=== PATIENT | male | born 1940 | race Caucasian/White ===

== ENCOUNTER 2017-12-13 18:17 | Observation (INO) ==
--- NOTE | 2017-12-13 20:22 | RAD ---
STUDY: CHEST, ONE VIEW History: Chest pain. Comparison: None. Findings: The trachea is midline. There is increased opacity in the upper lobes bilaterally. There appears to b e some elevation of the left hilum. This is most suggestive of scarring or chronic interstitial vela es. There are underlying changes of COPD in both lungs. There is mild cardiomegaly. The mediastinum a nd osseous structures are unremarkable. IMPRESSION: 1. Increased opacity in both lung apices. Imaging characteristics suggest scarring or chronic inters titial changes, but acute infiltrates cannot be completely excluded. Clinical correlation is recommen ded. 2. COPD. 3. Cardiomegaly. Reported By:
[2017-12-13 20:40] LABS: BASOPHILS # (AUTO) 0.2 X10^3/uL (0.0-0.1); EOSINOPHILS # (AUTO) 0.1 x10^3/uL (0.0-0.2); EOSINOPHILS % (AUTO) 1.6 % (0.9-2.9); HEMATOCRIT 38.1 % (42.0-54.0); HEMOGLOBIN 12.6 g/dL (13.5-18.0); LYMPHOCYTES # (AUTO) 2.1 X10^3/uL (1.3-2.9); LYMPHOCYTES % (AUTO) 26.5 % (21.0-51.0); MEAN CORPUSCULAR HEMOGLOBIN 28.5 pg (27.0-34.0); MEAN CORPUSCULAR VOLUME 86.5 fL (80.0-100.0); MEAN PLATELET VOLUME 10.1 fL (7.4-11.0); MONOCYTES # (AUTO) 0.4 x10^3/uL (0.3-0.8); MONOCYTES % (AUTO) 5.4 % (0.0-13.0); NEUTROPHILS # (AUTO) 5.2 x10^3/uL (2.2-4.8); NEUTROPHILS % (AUTO) 64.5 % (42.0-75.0); PLATELET COUNT 274 X10^3/uL (150.0-450.0); RED CELL DISTRIBUTION WIDTH 15.9 % (11.6-16.5); WHITE BLOOD COUNT 8.1 X10^3/uL (3.6-10.0)
[2017-12-13 21:26] LABS: ALANINE AMINOTRANSFERASE 20 Units/L (12-78); ALBUMIN 3.7 g/dL (3.4-5.0); ALKALINE PHOSPHATASE 91 Units/L (46-116); ASPARTATE AMINO TRANSFERASE 17 Units/L (15-37); BLOOD UREA NITROGEN 11 mg/dL (7-18); CALCIUM 9.1 mg/dL (8.5-10.1); CARBON DIOXIDE 32.1 mmol/L (21-32); CHLORIDE 102 mmol/L (98-107); CKMB % 2.8 % (<4); CREATINE KINASE 50 Units/L (39-308); CREATINE KINASE MB 1.4 ng/mL (0-4.0); CREATININE 0.86 mg/dL (0.70-1.30); MAGNESIUM 2.2 mg/dL (1.7-2.9); SODIUM 138 mmol/L (136-145); TOTAL PROTEIN 7.2 g/dL (6.4-8.2); TROPONIN I < 0.02 ng/mL (0-1.5); eGFR NON BLACK RACES > 60 (>60)
--- NOTE | 2017-12-13 22:23 | CT ---
CT brain without contrast Indication: Headache, dizziness. Technique: Noncontrast multiplanar images are reviewed Findings: The scalp soft tissues and bones are negative. Moderate cerebral atrophy changes are presen t. There is no hemorrhage or large vessel infarct. There is mild developing periventricular hypodensi ty changes likely associated chronic small vessel disease. There is carotid atherosclerosis. The ventricles and cisterns bases are clear. There is opacification of left maxillary sinus with asso ciated bony sclerosis and thickening, chronic sinusitis changes are suspected. Impression: 1. Diffuse atrophy. 2. Developing chronic small vessel disease. 3. Left maxillary sinusitis. Reported By:
[2017-12-13 22:41] LABS: BILIRUBIN,URINE NEGATIVE (NEGATIVE); BLOOD/HEMOGLOBIN,URINE 1+ (NEGATIVE); GLUCOSE, URINE NEGATIVE (NEGATIVE); KETONES,URINE NEGATIVE (NEGATIVE); LEUKOCYTE ESTERASE ,URINE NEGATIVE (NEGATIVE); NITRITES,URINE NEGATIVE (NEGATIVE); PH,URINE 6.5 (5.0 - 8.0); PROTEIN,URINE NEGATIVE (NEGATIVE); UROBILINOGEN,URINE NORMAL (NORMAL)
[2017-12-13 22:48] LABS: APPEARANCE,URINE CLEAR (CLEAR); COLOR,URINE YELLOW (YELLOW)
[2017-12-13 22:49] LABS: BACTERIA,URINE NEGATIVE /HPF (NEGATIVE); RBC,URINE NONE SEEN /HPF (NONE SEEN); SQUAMOUS EPITHELIAL CELL,UR RARE /HPF (NEGATIVE)
[2017-12-14] MEDS ORDERED: NITROSTAT SL PRN (00:21)
[2017-12-14 01:18] LABS: CKMB % 2.9 % (<4); CREATINE KINASE MB 1.7 ng/mL (0-4.0); TROPONIN I 0.02 ng/mL (0-1.5)
[2017-12-14] MEDS: NS 1000 ML 1,000 ML IV SCH ×2 (01:41→08:21)
[2017-12-14] MEDS ORDERED: ALBUTEROL SULFATE IN PRN (01:46)
[2017-12-14] MEDS ORDERED: FLONASE NASAL SPRAY ENOSTRIL PRN (01:46)
[2017-12-14] MEDS ORDERED: RESTORIL CAP 30 MG PO PRN (01:46)
[2017-12-14] MEDS ORDERED: VALIUM PO PRN (01:46)
[2017-12-14 01:50] VITALS: BMI 26.4
[2017-12-14] MEDS: MORPHINE SULFATE INJ 2 MG INJ IVP PRN ×2 (03:55→15:09)
--- NOTE | 2017-12-14 04:09 | DR.DIZZY ---
HPI Time seen Time seen: 20:25 PCP Primary Care Physician: Bart HPI Comment HPI Comment: GETTING WORSE. NO FEVER OR NAUSEA. WAS OUT IN THE SUN YESTERDAY. LEGS ARE CRAMPING. BP ELEVATED AND ARMS HURT. PATIENTSAID BACK OF NECK ALSO HURT. Complaint Chief Complaint Doctor Comments: HEADACHE, DIZZINESS THAT STARTED TODAY. Chief Complaint:: "This morning I started getting a bad headache. It then got worse and I started getting dizzy. I went to the urgent care and they did an EKG. He told me that I needed to go to [facility], but they told me to go to the ER first." Nurses Notes Reviewed Nurses Notes Review: Yes Source History Provided: Patient Mode of Arrival Mode of Arrival: Ambulatory Timing Onset of Chief Complaint: 12/13/17 Came on: Suddenly Onset of Symptoms Start Date: 12/13/17 Onset of Symptoms Start Time: 08:00 Duration Duration: Constant Duration: Hours Location of Weakness Weakness Location: Generalized Context Onset: With light exertion Does pt take pot. toxic medication?: No History of: None Stroke Symptoms: Dizziness Severity Severity: Normal activity level Modifying factors Worsens: Other (ON EXERSION) Associated signs and symptoms Associated Signs and Symptoms: Weak and Headache PMH PMH Past Medical History: Yes Past Medical History: COPD Past Medical History Comment: Parkinson, Emphezima, COPD Past Surgical History: No Family History History of Family Medical Conditions: No Social History Does patient currently use any type of tobacco product: No Have you used tobacco products in the last 12 months: No Does any household member use tobacco: No Alcohol Use: None Do you use any recreational Drugs:: No Lives With: Family Lives Where: Home infectious screening In the last 2 months have you had wt loss of >10#?: NO Have you had fever, night sweats or hemotysis?: No Have you traveled outside the country in the last 6 months?: No Isolation: Standard ROS Review of Systems Constitutional: Weakness and Fatigue; negative Chills and Fever Eyes: No Symptoms Reported; negative Eye Pain and Discharge ENTM: Nose Congestion; negative Ear Pain and Throat Pain Respiratoy: No Symptoms Reported, Productive Cough and Short of Breath; negative Wheezing and Hemoptysis Gastrointestinal/Abdominal: No Symptoms Reported; negative Abdominal Pain, Nausea and Vomiting Genitourinary: negative Dysuria, Frequency and Pain Neurological: Weakness and Dizziness Musculoskeletal: Muscle Pain Integumentary: Dryness Hematologic/Lymphatic: No Symptoms Reported Endocrine: No Symptoms Reported All Other Systems: Reviewed and Negative PE Vital Signs Vitals: Temperature 97.5 F Pulse Rate [Left] 72 Pulse Rate 80 Respiratory Rate 20 Blood Pressure [Left Arm] 160/90 Blood Pressure 190/81 O2 Sat by Pulse Oximetry 94 General Limitations: No Limitations General Appearance: Alert Head Head Exam: Normal Inspection, Atraumatic and Normocephalic Eyes Eye exam: PERRL and EOMI; negative Scleral Icterus, Conjunctival Injection, Nystagmus, Periorbital Swelling and Periorbital Tenderness Pupils: Regular, Round: Bilateral and Reactive: Bilateral Sclera/Conjunctival: Normal Inspection: Bilateral ENT ENT Exam: Normal External Ear Exam Neck Neck Exam: Normal Inspection Chest Chest Inspection: Normal Inspection Respiratory Respiratory Exam: Normal Lung Sounds Bilat; negative Chest Wall Tenderness Respiratory Exam: Bilateral: Rhonchi and Lower: Rhonchi Cardiovascular Cardiovascular Exam: Regular Rate, Normal Rhythm and Normal Heart Sounds Abdominal Exam Abdominal Exam: Normal Inspection, Normal Bowel Sounds and Soft; negative Tenderness Abdominal Tenderness: Other (NO TENDERNESS) Rectal Rectal Exam: Deferred Extremeties Extremities Exam: Normal Inspection Back Back Exam: Normal Inspection Neurologic Neurological Exam: Alert, Oriented X3, CN II-XII Intact, Normal Gait and Other ( FINE TREMORES); negative Motor Sensory Deficit Patient Oriented To: Person, Place and Time Psychiatric Psychiatric Exam: Normal Affect and Normal Mood Skin Skin Exam: Dry MDM Differential Diagnosis Differential Diagnosis: Anemia, Dehydration, Hypoglycemia, Myocardial infarction and TIA COURSE Treatment Treatment: SEE ORDERS. IV FLUIDS STARTED IN ED. BP DECREASING. Education/Counseling Education/Counseling: Patient and Education Educated On: Diagnosis and Needs for Follow Up ROR Labs Reviewed Laboratory Results Reviewed?: Yes Result Diagrams: 12/13/17 20:25 12/13/17 21:45 Laboratory: WBC 8.1 X10^3/uL (3.6-10.0) 12/13/17 20:25 RBC 4.40 X10^6/uL (4.7-6.0) L 12/13/17 20:25 Hgb 12.6 g/dL (13.5-18.0) L 12/13/17 20:25 Hct 38.1 % (42.0-54.0) L 12/13/17 20:25 MCV 86.5 fL (80.0-100.0) 12/13/17 20:25 MCH 28.5 pg (27.0-34.0) 12/13/17 20:25 MCHC 33.0 g/dL (33.0-35.0) 12/13/17 20:25 RDW 15.9 % (11.6-16.5) 12/13/17 20:25 Plt Count 274 X10^3/uL (150.0-450.0) 12/13/17 20:25 MPV 10.1 fL (7.4-11.0) 12/13/17 20:25 Neut % (Auto) 64.5 % (42.0-75.0) 12/13/17 20:25 Lymph % (Auto) 26.5 % (21.0-51.0) 12/13/17 20:25 Clare % (Auto) 5.4 % (0.0-13.0) 12/13/17 20:25 Eos % (Auto) 1.6 % (0.9-2.9) 12/13/17 20:25 Baso % (Auto) 2.0 % (0.2-1.0) H 12/13/17 20:25 Neut # (Auto) 5.2 x10^3/uL (2.2-4.8) H 12/13/17 20:25 Lymph # (Auto) 2.1 X10^3/uL (1.3-2.9) 12/13/17 20:25 Clare # (Auto) 0.4 x10^3/uL (0.3-0.8) 12/13/17 20:25 Eos # (Auto) 0.1 x10^3/uL (0.0-0.2) 12/13/17 20:25 Baso # (Auto) 0.2 X10^3/uL (0.0-0.1) H 12/13/17 20:25 Absolute Nucleated RBC 0.0 /100WBC 12/13/17 20:25 INR Target Range - 12/13/17 20: INR 0.85 (0.8-1.3) 12/13/17 20:25 APTT 32.0 SECONDS (22.9-36.5) 12/13/17 20:25 PTT Comment - 12/13/17 20:25 Sodium 138 mmol/L (136-145) 12/13/17 20:27 Corrected Sodium TNP 12/13/17 20:27 Potassium 5.2 mmol/L (3.5-5.1) H 12/13/17 21:45 Chloride 102 mmol/L (98-107) 12/13/17 20:27 Carbon Dioxide 32.1 mmol/L (21-32) H 12/13/17 20:27 BUN 11 mg/dL (7-18) 12/13/17 20:27 Creatinine 0.86 mg/dL (0.70-1.30) 12/13/17 20:27 Est GFR (MDRD) Af Amer > 60 (>60) 12/13/17 20:27 Est GFR (MDRD) Non-Af > 60 (>60) 12/13/17 20:27 Glucose 98 mg/dL (65-99) 12/13/17 20:27 Calcium 9.1 mg/dL (8.5-10.1) 12/13/17 20:27 Corrected Calcium TNP 12/13/17 20:27 Magnesium 2.2 mg/dL (1.7-2.9) 12/13/17 20:27 Total Bilirubin 0.20 mg/dL (0.2-1.0) 12/13/17 20:27 AST 17 Units/L (15-37) 12/13/17 20:27 ALT 20 Units/L (12-78) 12/13/17 20:27 Alkaline Phosphatase 91 Units/L (46-116) 12/13/17 20:27 Creatine Kinase 59 Units/L (39-308) 12/14/17 00:41 CK-MB (CK-2) 1.7 ng/mL (0-4.0) 12/14/17 00:41 CK/CKMB % Calc 2.9 % (<4) 12/14/17 00:41 Troponin I 0.02 ng/mL (0-1.5) 12/14/17 00:41 Total Protein 7.2 g/dL (6.4-8.2) 12/13/17 20:27 Albumin 3.7 g/dL (3.4-5.0) 12/13/17 20:27 Globulin 3.5 g/dL (2.5-4.5) 12/13/17 20:27 Albumin/Globulin Ratio 1.1 Ratio (1.1-2.1) 12/13/17 20:27 Specimen Type Clean catch urine 12/13/17 21:55 Urine Color Yellow (YELLOW) 12/13/17 21:55 Urine Appearance Clear (CLEAR) 12/13/17 21:55 Urine pH 6.5 (5.0 - 8.0) 12/13/17 21:55 Ur Specific [place] 1.005 (1.000-1.030) 12/13/17 21:55 Urine Protein Negative (NEGATIVE) 12/13/17 21:55 Urine Glucose (UA) Negative (NEGATIVE) 12/13/17 21:55 Urine Ketones Negative (NEGATIVE) 12/13/17 21:55 Urine Occult Blood 1+ (NEGATIVE) 12/13/17 21:55 Urine Nitrite Negative (NEGATIVE) 12/13/17 21:55 Urine Bilirubin Negative (NEGATIVE) 12/13/17 21:55 Urine Urobilinogen Normal (NORMAL) 12/13/17 21:55 Ur Leukocyte Esterase Negative (NEGATIVE) 12/13/17 21:55 Urine RBC None seen /HPF (NONE SEEN) 12/13/17 21:55 Urine WBC None seen /HPF (NONE SEEN) 12/13/17 21:55 Ur Squamous Epith Cells Rare /HPF (NEGATIVE) 12/13/17 21:55 Urine Bacteria Negative /HPF (NEGATIVE) 12/13/17 21:55 Ur Culture Indicated? No/not indicated 12/13/17 21:55 ADDITIONAL NOTES Additional Notes Additional Notes: PATIENT ADMITTED TO [facility]. DISCUSS PATIENT WITH DR. JANSEN. HE WILL ADMIT PATIENT.
[2017-12-14] MEDS: MIRAPEX TAB 1 MG PO SCH ×3 (05:10→22:01)
[2017-12-14] MEDS ORDERED: PROVENTIL NEB TX 0.083% 2.5MG/ 3ML NEB PRN (05:13)
[2017-12-14 05:26] LABS: BASOPHILS % (AUTO) 0.6 % (0.2-1.0); EOSINOPHILS # (AUTO) 0.1 x10^3/uL (0.0-0.2); EOSINOPHILS % (AUTO) 1.5 % (0.9-2.9); HEMATOCRIT 38.7 % (42.0-54.0); HEMOGLOBIN 12.6 g/dL (13.5-18.0); LYMPHOCYTES # (AUTO) 1.8 X10^3/uL (1.3-2.9); MEAN CORPUSCULAR HEMOGLOBIN 28.1 pg (27.0-34.0); MEAN CORPUSCULAR HGB CONC 32.5 g/dL (33.0-35.0); MEAN CORPUSCULAR VOLUME 86.3 fL (80.0-100.0); MEAN PLATELET VOLUME 8.5 fL (7.4-11.0); MONOCYTES # (AUTO) 0.4 x10^3/uL (0.3-0.8); MONOCYTES % (AUTO) 5.7 % (0.0-13.0); NEUTROPHILS # (AUTO) 4.4 x10^3/uL (2.2-4.8); NEUTROPHILS % (AUTO) 65.2 % (42.0-75.0); PLATELET COUNT 205 X10^3/uL (150.0-450.0); RED BLOOD COUNT 4.48 X10^6/uL (4.7-6.0); RED CELL DISTRIBUTION WIDTH 15.8 % (11.6-16.5); WHITE BLOOD COUNT 6.7 X10^3/uL (3.6-10.0)
[2017-12-14 05:32] LABS: ALANINE AMINOTRANSFERASE 12 Units/L (12-78); ALBUMIN 3.3 g/dL (3.4-5.0); ALKALINE PHOSPHATASE 86 Units/L (46-116); ASPARTATE AMINO TRANSFERASE 16 Units/L (15-37); BLOOD UREA NITROGEN 10 mg/dL (7-18); CARBON DIOXIDE 31.8 mmol/L (21-32); CHLORIDE 104 mmol/L (98-107); CHOL/HDL RATIO 2.6 (0.0-5.0); CHOLESTEROL 175 mg/dL (0-200); COR CA(FOR HYPOALB) 9.6 mg/dL (8.5-10.1); CREATININE 0.73 mg/dL (0.70-1.30); HDL CHOLESTEROL 67 mg/dL (40-60); SODIUM 139 mmol/L (136-145); TOTAL PROTEIN 7.1 g/dL (6.4-8.2); TRIGLYCERIDES 91 mg/dL (0-150); eGFR NON BLACK RACES > 60 (>60)
[2017-12-14 07:01] LABS: CKMB % 2.4 % (<4); CREATINE KINASE MB 1.3 ng/mL (0-4.0); TROPONIN I 0.03 ng/mL (0-1.5)
--- NOTE | 2017-12-14 08:16 | DR.H&P ---
H&P - History & Physical for Day of: H&P Date: 12/13/17 - Chief Complaint Chief Complaint: HEADACHE, DIZZINESS - History of Present Illness History of Present Illness: IS A 76 YEAR OLD WHITE MALE WHO PRESENTED TO THE EMERGENCY ROOM WITH COMPLAINTS OF HEADACHE AND DIZZINESS THAT STARTED TODAY AND HAS PROGRESSIVELY GOTTEN WORSE. PATIENT REPORT THAT HE WAS SEEN AT URGENT CARE TODAY AND WAS TOLD THAT IT WAS ABNORMAL AND THAT HE NEEDED FURTHER EVALUATION. HE ALSO COMPLAINS OF NECK PAIN AND BILATERAL LEG CRAMPING. HE DENIES FEVER OR NAUSEA. ON ARRIVAL, VITALS WERE 98.2-80-18-94%-190/81. LABS WERE OBTAINED. ABNORMAL LAB VALUES INCLUDE THE FOLLOWING: RBC 4.40, HGB 12.6, HCT 38.1, POTASSIUM 5.6, CARBON DIOXIDE 32.1. CARDIAC ENZYMES WITHIN NORMAL LIMITS. CHEST XRAY REVEALED: Increased opacity in both lung apices. Imaging characteristics suggest scarring or chronic interstitial changes, but acute infiltrates cannot be completely excluded. Clinical correlation is recommended. COPD. Cardiomegaly. AN EKG WAS OBTAINED AND REVEALED SINUS RHYTHM WITH HR 69. A BRAIN CT WAS OBTAINED AND REVEALED: Diffuse atrophy. Developing chronic small vessel disease. Left maxillary sinusitis. WE ADMITTED PATIENT FOR FURTHER EVALUATION AND TREATMENT OF HYPRKALEMIA, DIZZINESS, GENERALIZED WEAKNESS, AND SINUSITIS. HE WAS STARTED ON FLONASE DAILY, NORMAL SALINE AT 75ML/HR, MORPHINE 2MG IV Q2H PRN, CIPRO 400MG IV BID, AND HOME MEDICATIONS WERE REVIEWED. WE PLAN TO FOLLOW UP WITH AM LABS AND CONTINUE TO MONITOR PATIENT. - Past Medical History Past Medical History: COPD - Past Surgical History Surgical History: Other - Family History Family Medical History: Hypertension - Social History Does patient currently use any type of tobacco product: No Have you used tobacco products in the last 12 months: No Type of Tobacco Use: None Does any household member use tobacco: No Alcohol Use: None Drug Use: None - Medications Home Medications: carbidopa [From Sinemet] Allergy (Verified 12/13/17 22:28) levodopa [From Sinemet] Allergy (Verified 12/13/17 22:28) CHOCOLATE Allergy (Uncoded 12/13/17 22:29) CONTINUE taking the following medications albuterol sulfate [Ventolin HFA] 1 - 2 puff INHALATION PRN PRN 12/13/17 [History ] diazepam 1 tab PO BID PRN 12/13/17 [History] fluticasone 1 - 2 inh INTRANASAL PRN PRN 12/13/17 [History] hydrocodone-acetaminophen 1 tab PO QID PRN 12/13/17 [History] levocetirizine 1 tab PO HS 12/13/17 [History] metoclopramide HCl 1 tab PO QID 12/13/17 [History] omeprazole 1 tab PO DAILY 12/13/17 [History] pramipexole 1.5 tab PO TID 12/13/17 [History] primidone 1 tab PO HS 12/13/17 [History] ropinirole 1 tab PO HS 12/13/17 [History] simvastatin 1 tab PO HS 12/13/17 [History] temazepam 1 cap PO HS PRN 12/13/17 [History] tizanidine 1 tab PO BID PRN 12/13/17 [History] valsartan-hydrochlorothiazide 1 tab PO DAILY 12/13/17 [History] venlafaxine 1 cap PO DAILY 12/13/17 [History] venlafaxine 1 tab PO DAILY 12/13/17 [History] - Review of Systems Constitutional: See HPI, Weakness Eyes: No Symptoms Reported ENT: Nose Congestion Respiratory: No Symptoms Reported Cardiovascular: Light Headedness. denies: Chest Pain Gastrointestinal: No Symptoms Reported Genitourinary: No Symptoms Reported Musculoskeletal: Neck Pain Skin: No Symptoms Reported Neurological: Weakness, Other (HEADACHE) - Physical Exam Vital Signs: Temperature 97.6 F Pulse Rate [Left] 77 Pulse Rate 80 Respiratory Rate 20 Blood Pressure [Left Arm] 160/77 Blood Pressure 190/81 O2 Sat by Pulse Oximetry 98 Oriented: Normal Eyes: Normal Ear: Normal Nose: Normal Throat: Normal Respiratory: Diminished Throughout Cardiovascular: Normal. negative: S3, S4, Murmur : Normal Auscultation: Bowel Sounds: Normal Palpation: Normal Tenderness: Normal Skin: Normal Psychiatric: Normal Mood Description: Calm Affect: Normal Speech Pattern: Clear - Assessment/Plan (1) Hyperkalemia Status: Acute Plan: ADMIT, NORMAL SALINE AT 75ML/HR, CONTINUE TO MONITOR (2) Sinusitis Qualifiers: Sinusitis location: maxillary Chronicity: acute Recurrence: not specified as recurrent Qualified Code(s): J01.00 - Acute maxillary sinusitis, unspecified Status: Acute Plan: FLONASE, CIPRO 400MG IV BID, CONTINUE TO MONITOR (3) Generalized weakness Status: Acute (4) Dizziness Status: Acute - Allergies Allergies/Adverse Reactions: Allergies Allergy/AdvReac Type Severity Reaction Status Date / Time carbidopa [From Sinemet] Allergy Verified 12/13/17 22:28 levodopa [From Sinemet] Allergy Verified 12/13/17 22:28 CHOCOLATE Allergy Uncoded 12/13/17 22:29
[2017-12-14] MEDS: REGLAN TAB 10 MG PO SCH ×4 (08:21→20:34)
[2017-12-14] MEDS: HYDROCHLOROTHIAZIDE 12.5 MG CAP PO SCH (08:21)
[2017-12-14] MEDS: ZyrTEC TAB 10 MG PO SCH (08:21)
[2017-12-14] MEDS: EFFEXOR XR 75 MG CAP PO SCH (08:21)
[2017-12-14] MEDS: DIOVAN TAB 80 MG PO SCH (08:21)
[2017-12-14] MEDS: ASPIRIN PO SCH (08:21)
[2017-12-14] MEDS: EFFEXOR XR 150 MG CAP PO SCH (08:21)
[2017-12-14] MEDS ORDERED: PATIENT'S HOME MEDICATION (Valsartan-Hydrochlorothiazide [Valsartan-Hydrochlorothiazide] 1 PO SCH (09:00)
[2017-12-14] MEDS ORDERED: DIOVAN TAB 80 MG PO SCH (09:00)
[2017-12-14] MEDS ORDERED: PEPCID TAB 20 MG PO SCH (09:00)
[2017-12-14] MEDS ORDERED: LOPRESSOR TAB 50 MG PO SCH (09:00)
[2017-12-14] MEDS ORDERED: PLAVIX PO SCH (09:00)
[2017-12-14] MEDS ORDERED: ZESTRIL TAB 10 MG PO SCH (09:00)
[2017-12-14] MEDS ORDERED: ZOFRAN INJ 4 MG VIAL IVP PRN (09:17)
[2017-12-14] MEDS: CIPRO IV 400 MG PREMIX* 400 MG/200 ML IV.SOLN. IV SCH ×2 (10:09→20:34)
[2017-12-14] MEDS: FLONASE NASAL SPRAY ENOSTRIL SCH (10:10)
[2017-12-14] MEDS ORDERED: SALINE 3% 15 ML NEB TX ONE (10:35)
[2017-12-14] MEDS: DUONEB 0.5 MG/3 MG NEB SCH ×3 (12:11→20:30)
[2017-12-14 12:55] LABS: CKMB % 2.5 % (<4); CREATINE KINASE 57 Units/L (39-308); CREATINE KINASE MB 1.4 ng/mL (0-4.0); TROPONIN I < 0.02 ng/mL (0-1.5)
[2017-12-14] MEDS ORDERED: REQUIP PO SCH (21:00)
[2017-12-14] MEDS ORDERED: ZOCOR TAB 20 MG PO SCH (21:00)
[2017-12-14] MEDS ORDERED: PATIENT'S HOME MEDICATION (Levocetirizine [Levocetirizine] 1 TAB) PO SCH (21:00)
[2017-12-14] MEDS ORDERED: MYSOLINE TAB 250 MG PO SCH (21:00)
[2017-12-15] MEDS: DUONEB 0.5 MG/3 MG NEB SCH ×3 (01:20→09:00)
[2017-12-15] MEDS: MORPHINE SULFATE INJ 2 MG INJ IVP PRN (01:26)
[2017-12-15] MEDS: NS 1000 ML 1,000 ML IV SCH (03:09)
[2017-12-15] MEDS: MIRAPEX TAB 1 MG PO SCH (05:31)
[2017-12-15 06:19] LABS: BASOPHILS % (AUTO) 0.4 % (0.2-1.0); EOSINOPHILS # (AUTO) 0.1 x10^3/uL (0.0-0.2); EOSINOPHILS % (AUTO) 1.5 % (0.9-2.9); HEMATOCRIT 37.1 % (42.0-54.0); HEMOGLOBIN 12.1 g/dL (13.5-18.0); LYMPHOCYTES % (AUTO) 28.9 % (21.0-51.0); MEAN CORPUSCULAR HEMOGLOBIN 28.2 pg (27.0-34.0); MEAN CORPUSCULAR HGB CONC 32.6 g/dL (33.0-35.0); MEAN CORPUSCULAR VOLUME 86.5 fL (80.0-100.0); MEAN PLATELET VOLUME 8.4 fL (7.4-11.0); MONOCYTES # (AUTO) 0.5 x10^3/uL (0.3-0.8); MONOCYTES % (AUTO) 6.8 % (0.0-13.0); NEUTROPHILS # (AUTO) 4.3 x10^3/uL (2.2-4.8); NEUTROPHILS % (AUTO) 62.4 % (42.0-75.0); PLATELET COUNT 197 X10^3/uL (150.0-450.0); RED BLOOD COUNT 4.29 X10^6/uL (4.7-6.0); RED CELL DISTRIBUTION WIDTH 16.1 % (11.6-16.5); WHITE BLOOD COUNT 6.8 X10^3/uL (3.6-10.0)
[2017-12-15 06:39] LABS: ALANINE AMINOTRANSFERASE 17 Units/L (12-78); ALBUMIN 3.2 g/dL (3.4-5.0); ALKALINE PHOSPHATASE 85 Units/L (46-116); ASPARTATE AMINO TRANSFERASE 18 Units/L (15-37); BLOOD UREA NITROGEN 12 mg/dL (7-18); CALCIUM 8.7 mg/dL (8.5-10.1); CARBON DIOXIDE 31.3 mmol/L (21-32); CHLORIDE 102 mmol/L (98-107); COR CA(FOR HYPOALB) 9.3 mg/dL (8.5-10.1); CREATININE 0.78 mg/dL (0.70-1.30); SODIUM 139 mmol/L (136-145); TOTAL PROTEIN 7.1 g/dL (6.4-8.2); eGFR NON BLACK RACES > 60 (>60)
[2017-12-15] MEDS ORDERED: NORCO 5/325 MG TAB PO PRN (07:07)
[2017-12-15] MEDS: DIOVAN TAB 80 MG PO SCH (08:36)
[2017-12-15] MEDS: EFFEXOR XR 75 MG CAP PO SCH (08:36)
[2017-12-15] MEDS: ASPIRIN PO SCH (08:36)
[2017-12-15] MEDS: HYDROCHLOROTHIAZIDE 12.5 MG CAP PO SCH (08:36)
[2017-12-15] MEDS: REGLAN TAB 10 MG PO SCH (08:37)
[2017-12-15] MEDS: CIPRO IV 400 MG PREMIX* 400 MG/200 ML IV.SOLN. IV SCH (08:37)
[2017-12-15] MEDS: FLONASE NASAL SPRAY ENOSTRIL SCH (08:37)
[2017-12-15] MEDS: ZyrTEC TAB 10 MG PO SCH (08:37)
[2017-12-15] MEDS: EFFEXOR XR 150 MG CAP PO SCH (08:37)
--- NOTE | 2017-12-15 09:07 | RAD ---
Examination: Chest x-ray. Clinical history: Shortness of breath. Technique: A single portable AP view of the chest was obtained. Comparison: 12/13/2017. Findings: The patient's chin obscures visualization of the lung apices bilaterally. The cardiac silhouette appears borderline enlarged. The cardiac silhouette size may be accentuated by the AP projection. No pneumothorax or pleural effusion is noted. There are bilateral apical pleural opacities which are essentially symmetric and stable in appearance , probably due to scarring. There are increased interstitial markings seen in the lungs bilaterally, which could be due to edema, pneumonia or chronic interstitial lung disease. Clinical correlation is recommended. The bones are diffusely osteopenic. Degenerative changes are noted in the spine. No acute osseous abn ormality is noted. Monitor leads are seen overlying the chest. Impression: 1. The cardiac silhouette appears borderline enlarged. The cardiac silhouette size may be accentuated by the AP projection. 2. There are increased interstitial markings seen in the lungs bilaterally, which could be due to choco ma, pneumonia or chronic interstitial lung disease. Clinical correlation is recommended. 3. There are bilateral apical pleural opacities which are essentially symmetric and stable in appeara nce, probably due to scarring. Reported By:
[2017-12-15 09:39] VITALS: BP 137/75
--- NOTE | 2017-12-27 16:55 | DR.CARTERD ---
- Discharge Summary for: Discharge Summary for Date of:: 12/15/17 - Admission Date Date of Admission: 12/13/17 - Admission Diagnoses Admission Diagnosis: (1) Hyperkalemia (2) Sinusitis (3) Generalized weakness (4) Dizziness - Discharge Date Discharge Date: 12/15/17 - Discharge Diagnoses Discharge Diagnosis: (1) Klebsiella Pneumoniae infection (2) Hyperkalemia (3) Acute bronchitis (4) Sinusitis (5) Generalized weakness (6) Dizziness - Hospital Course Hospital Course: Day one, Mr. Nichole presented to the emergency room with complaints of headache and dizziness that started prior to arrival and had progressively worsened. Patient reported that he was seen at urgent care prior to arrival and was told that it was abnormal and that he needed further evaluation. He also complained of neck pain and bilateral leg cramping. He denied fever or nausea. Medical History: Cataracts, CAD, Angina, Hyperlipidemia, Hypertension, Pneumonia , COPD, Emphysema, Sleep Apnea, Gerd, Kidney Stones, Muscle Weakness, Arthritis , Back Pain, DDD, Anxiety. Abnormal Labs: RBC 4.40, Hgb 12.6, Hct 38.1, Potassium 5.6, Carbon Dioxide 32.1. Chest X-Ray: Increased opacity in both lung apices; Imaging characteristics suggest scarring or chronic interstitial changes , but acute infiltrates cannot be completely excluded; COPD; Cardiomegaly. Brain CT: Diffuse atrophy; Developing chronic small vessel disease; Left maxillary sinusitis. EKG: Sinus Rhythm, rate=69. Sputum culture obtained. We admitted patient for further evaluation and treatment of hyperkalemia, dizziness , generalized weakness, and sinusitis. He was started on Flonase daily, normal saline at 75ml/hr, Morphine 2mg IV q2h prn, Cipro 400mg IV twice daily. We continued to monitor. Day two, Patient continued treatment for hyperkalemia, dizziness, and generalized weakness. Patient reported continued headache and dizziness. Potassium was normal at 4.3. Patient had an intermittent cough with thick sputum. On auscultation, lungs were noted with scattered rhonchi throughout. We continued treatment and continued to monitor. Day three, Patient was alert and oriented. Patient reported that he was feeling better. Patient denied dizziness or headache. Cardiac enzymes and ekg's wnl. Labs wnl. Potassium level remained wnl. Final sputum culture reported Klebsiella Pneumoniae. He denied nausea. Vital signs stable. Cough was intermittent, productive. Sputum thin and easy to expel. On auscultation, lungs were noted with scattered rhonchi. We planned for discharge with Cipro by mouth for positive sputum culture. Instructions for medications and follow up were discussed with patient and family, both voiced understanding. Patient discharged home in stable condition with family. Labs: Microbiology 12/14/17 11:29 Sputum - Expectorated Sputum Sputum Culture - Final 12/14/17 11:29 Sputum - Expectorated Sputum - Final Klebsiella Pneumoniae - Discharge Medications Discharge Medications: Home Medication List albuterol sulfate [Ventolin HFA] 1 - 2 puff INHALATION PRN PRN 12/13/17 [History ] diazepam 1 tab PO BID PRN 12/13/17 [History] fluticasone 1 - 2 inh INTRANASAL PRN PRN 12/13/17 [History] hydrocodone-acetaminophen 1 tab PO QID PRN 12/13/17 [History] levocetirizine 1 tab PO HS 12/13/17 [History] metoclopramide HCl 1 tab PO QID 12/13/17 [History] omeprazole 1 tab PO DAILY 12/13/17 [History] pramipexole 1.5 tab PO TID 12/13/17 [History] primidone 1 tab PO HS 12/13/17 [History] ropinirole 1 tab PO HS 12/13/17 [History] simvastatin 1 tab PO HS 12/13/17 [History] temazepam 1 cap PO HS PRN 12/13/17 [History] tizanidine 1 tab PO BID PRN 12/13/17 [History] valsartan-hydrochlorothiazide 1 tab PO DAILY 12/13/17 [History] venlafaxine 1 cap PO DAILY 12/13/17 [History] venlafaxine 1 tab PO DAILY 12/13/17 [History] ciprofloxacin HCl [Cipro] 500 mg PO BID #20 tab 12/15/17 [Rx] Prescriptions: ciprofloxacin HCl [Cipro] Kapil Alvarez - Discharge Disposition Discharge Disposition: Patient is to follow up in our office in one week.
== END 2017-12-15 11:25 | disposition home or self-care (01) ==
LOC: MED/SURG 18:18 → ER 18:18 → MED/SURG 12-14 00:27
PROVIDERS: ADMIT Internal Medicine; ATTEND Internal Medicine
DX: J01.00 Acute maxillary sinusitis, unspecified; I51.7 Cardiomegaly; R53.1 Weakness; B96.1 Klebsiella pneumoniae [K. pneumoniae] as the cause of diseases classified elsewhere; R06.02 Shortness of breath; J44.9 Chronic obstructive pulmonary disease, unspecified; M54.2 Cervicalgia; R94.31 Abnormal electrocardiogram [ECG] [EKG]; R42 Dizziness and giddiness; E87.5 Hyperkalemia; R51 Headache
CPT/HCPCS: 36415; 70450; 71010; 71045; 80053; 80061; 81001; 82550; 82553; 83735; 84132; 84484; 85025; 85610; 85730; 87070; 87077; 87186; 87205; 93005; 93010; 94640; 94760; 96365; 97162; 97166; 99284; A4222; G0378; J0744; J2270; J2405; J7030; J7620